=== PATIENT | female | born 1990 | race Two or more races ===

== ENCOUNTER 2022-11-11 14:23 | Emergency (ER) | payer MEDICAID, OTHER ==
[~2022-11-11] VITALS: Ht 149.9 cm; Wt 66.0 kg
[2022-11-11] MEDS ORDERED: IBUPROFEN 600 MG TAB PO ONE (15:45)
[2022-11-11 16:02] VITALS: BP 142/80
[2022-11-11] MEDS ORDERED: IBUP800T27 PO (16:35)
== END 2022-11-11 16:56 | disposition home or self-care (01) ==
LOC: ER 14:23
DX: S92.351A Displaced fracture of fifth metatarsal bone, right foot, initial encounter for closed fracture (principal); Z79.1 Long term (current) use of non-steroidal anti-inflammatories (NSAID); W01.0XXA Fall on same level from slipping, tripping and stumbling without subsequent striking against object, initial encounter; Y93.89 Activity, other specified; Y92.89 Other specified places as the place of occurrence of the external cause; Y99.8 Other external cause status
CPT/HCPCS: 29515; 73630